=== PATIENT | male | born 1970 | race Caucasian/White ===

== ENCOUNTER 2017-02-15 14:22 | Emergency (ER) | payer OTHER ==
[~2017-02-15] VITALS: Ht 61 cm; Wt 99.8 kg
[2017-02-15 14:39] VITALS: BP_SYST 130
--- NOTE | 2017-02-15 14:43 | NUR ---
Pt placed to ER waiting room in stable condition.
[2017-02-15 15:05] LABS: BASOPHILS % (AUTO) 0.3 % (0.0-2.0); EOSINOPHILS # (AUTO) 0.1 K/uL (0.0-0.4); EOSINOPHILS % (AUTO) 0.8 % (0.0-4.0); HEMATOCRIT 44.4 % (36-54); HEMOGLOBIN 14.9 g/dL (14.0-18.0); LYMPHOCYTES # (AUTO) 1.8 K/uL (1.0-5.5); LYMPHOCYTES % (AUTO) 14.6 % (20.5-51.5); MEAN CORPUSCULAR HEMOGLOBIN 29 pg (27-31); MEAN CORPUSCULAR HGB CONC 33 % (32-36); MEAN CORPUSCULAR VOLUME 87 fL (79.0-98.0); MONOCYTES # (AUTO) 0.7 K/uL (0.0-1.0); MONOCYTES % (AUTO) 5.6 % (1.7-9.3); NEUTROPHILS # (AUTO) 9.7 K/uL (1.8-7.7); NEUTROPHILS % (AUTO) 78.7 % (40.0-70.0); PLATELET COUNT (AUTO) 337 K/uL (130-430); RED BLOOD CELL COUNT(AUTO) 5.09 MIL/uL (4.2-6.2); RED CELL DISTRIBUTION WIDTH 12.2 % (9.0-15.0); WHITE BLOOD COUNT (AUTO) 12.3 K/uL (4.8-10.8)
[2017-02-15 15:32] LABS: CREATININE 0.82 mg/dL (0.55-1.30); POTASSIUM 3.8 mmol/L (3.5-5.1)
[2017-02-15 15:36] LABS: ALBUMIN 4.6 g/dL (3.4-4.8); TOTAL BILIRUBIN 0.6 mg/dL (0.0-1.0)
[2017-02-15 16:06] LABS: BILIRUBIN,URINE NEGATIVE (NEGATIVE); BLOOD, URINE 1+ (NEGATIVE); CLARITY/URINE CLEAR (CLEAR); COLOR,URINE YELLOW (YELLOW); GLUCOSE,URINE NEGATIVE (NEGATIVE); KETONES,URINE NEGATIVE (NEGATIVE); LEUKOCYTE ESTERASE ,URINE NEGATIVE (NEGATIVE); NITRITE, URINE NEGATIVE (NEGATIVE); PH,URINE 5.5 (5.0-8.0); PROTEIN URINE NEGATIVE (NEGATIVE); UROBILINOGEN,URINE 0.2 (0.2-1.0)
--- NOTE | 2017-02-15 16:16 | NUR ---
Ambulatory to hallway bed 2
--- NOTE | 2017-02-15 16:20 | NUR ---
Patient to ER via triage with c/o left lower quadrant, abdominal pain with c/o nausea x 1 day. Patient seen in urgent care earlier today, and sent over for further evaluation. Patient is awake, alert and oriented in no acute distress. Patient able to ambulate to hallway bed with slow, steady gait in no acute distress. No c/o increased pain/SOB upon exertion. Patient awaiting evaluation by ER MD, will continue to observe and assess.
[2017-02-15 16:33] LABS: BACTERIA,URINE RARE /HPF (None Seen); MUCUS,URINE None Seen /LPF (None Seen); RBC,URINE 0-3 /HPF (0-3); WBC,URINE NONE SEEN /HPF (0-3)
[2017-02-15] MEDS ORDERED: IBUPROFEN 800 MG TABLET PO ONE (16:45)
--- NOTE | 2017-02-15 17:30 | NUR ---
Patient resting quietly in no acute distress, no adverse reaction noted to medication
--- NOTE | 2017-02-15 17:40 | NUR ---
Patient given written and verbal discharge instructions and verbalizes understanding. ER MD discussed with patient the results and treatment provided. Patient in stable condition. ID arm band removed. Rx of Tramadol, Cipro, Motrin, Sulfa given. Patient educated on pain management and to follow up with PMD. Pain Scale 2. Opportunity for questions provided and answered. Patient left ER ambulating with slow, steady gait in no acute distress. No adverse reaction noted to medication.
[2017-02-15 17:44] VITALS: BP_SYST 127
== END 2017-02-15 17:40 | disposition home or self-care (01) ==
LOC: SED 14:22
DX: K57.92 Diverticulitis of intestine, part unspecified, without perforation or abscess without bleeding (principal)
CPT/HCPCS: 36415; 80053; 81000-TC; 83690-TC; 85025; 99285